=== PATIENT | female | born 1960 | race Caucasian/White ===

== ENCOUNTER → 2024-07-25 11:14 | Outpatient (REF) | payer OTHER, SELFPAY ==
[2024-07-26 14:37] LABS: Mumps Virus IgG Positive; Rubeola (Measles) IgG Positive; Varicella Zoster IgG (VZV) Positive
[2024-07-26 19:47] LABS: Rubella Positive
[2024-07-27 09:22] LABS: Quantiferon Mitogen minus NIL 9.95 IU/mL; Quantiferon NIL 0.05 IU/mL; Quantiferon Plus TB2 minus NIL 0.02 IU/mL (<=0.34); Quantiferon TB Gold Plus Negative (Negative)
== END ==
LOC: OHS 11:14
PROVIDERS: ATTENDING PHYSICIAN Nurse Practitioner Family
DX: Z23 Encounter for immunization (principal)
CPT/HCPCS: 36415; 86480; 86735; 86762; 86765; 86787

== ENCOUNTER → 2025-01-07 17:23 | Outpatient (REF) | payer BC, SELFPAY | LOC: RAD 17:23 | PROVIDERS: ATTENDING PHYSICIAN Physician Assistant Medical | DX: M54.16 Radiculopathy, lumbar region (principal); Z98.1 Arthrodesis status | CPT/HCPCS: 72114; 72131 ==